=== PATIENT | male | born 1985 | race Caucasian/White ===

== ENCOUNTER 2024-08-02 11:33 | Emergency (ER) | payer OTHER, SELFPAY ==
--- NOTE | ~2024-08-02 | CT_ITS ---
EXAMINATION: CT abdomen pelvis w con DATE: 08/02/2024 12:46 INDICATION: Left lower quadrant abdominal pain. Diarrhea. TECHNIQUE: Computed tomography (CT) of the abdomen and pelvis was performed with 100 mL Omnipaque 350 intravenous contrast. Automated exposure control and iterative reconstruction technique were employe d. The dose-length product was 219.70 mGy-cm. COMPARISON: None. FINDINGS: The visualized portions of the lung bases are clear without pneumonia or pleural effusion. The heart size is normal. No pericardial effusion. The liver is normal. There are changes of cholecys tectomy. The spleen, pancreas, adrenal glands, and kidneys are normal. There are no dilated loops of bowel. There is fat stranding around an epiploic appendage of sigmoid colon, consistent with epiploic appendagitis. The appendix is normal. There are no pathologically enlarged lymph nodes. There is no free intraperitoneal fluid. There is mild lumbar spondylosis. IMPRESSION: 1. Epiploic appendagitis of sigmoid colon. Reviewed, dictated and finalized at location A.
[2024-08-02 11:36] VITALS: BP 124/75; PULSE 68; RESP 15; TEMP 36.6; O2SAT 100
[2024-08-02 12:15] LABS: Basophils Absolute Auto 0.1 K/mm3 (0.0-0.1); Basophils Percent Auto 0.8 % (0.2-1.2); Eosinophils Absolute Auto 0.4 K/mm3 (0-0.3); Eosinophils Percent Auto 4.3 % (0-4.4); Hematocrit 40.6 % (42.0-52.0); Immature Granulocyte Absolute 0.03 K/mm3 (0.00-0.031); Immature Granulocyte Percent A 0.3 % (0-0.5); Lymphocytes Absolute Auto 2.07 K/mm3 (0.9-3.2); Lymphocytes Percent Auto 23.9 % (18.3-44.2); Mean Corpuscular HGB Conc 34.5 g/dl (32-36); Mean Corpuscular Hemoglobin 31.6 pg (26-34); Mean Corpuscular Volume 91.6 fl (80-100); Mean Platelet Volume 9.9 fl (7.4-10.4); Monocytes Absolute Auto 0.5 K/mm3 (0.1-0.6); Monocytes Percent Auto 5.3 % (2.6-8.5); Neutrophils Absolute Auto 5.7 K/mm3 (1.3-6.7); Neutrophils Percent Auto 65.4 % (45.5-73.1); Platelet Count Result 321 k/mm3 (150-375); Red Blood Count 4.43 M/mm3 (4.6-6.20); Red Cell Distribution Width 11.9 % (11.5-14.5); White Blood Count 8.7 K/mm3 (4.5-10.0)
[2024-08-02 12:18] LABS: Add Urine Microscopic? NO; Appearance Urine Clear (Clear); Bilirubin Urine Negative (Negative); Blood Urine Negative (Negative); Color Urine Yellow (Yellow); Glucose Urine UA Negative (Negative); Ketones Urine Negative (Negative); Leukocyte Esterase Ur Negative LEU/UL (Negative); Nitrate Urine Negative (Negative); Protein Urine Negative (Negative); Urobilinogen Urine 0.2 mg/dL (<2.0); pH Urine 6.5 (5.0-9.0)
[2024-08-02 12:25] LABS: Alanine Aminotransferase 24 U/L (6-50); Albumin Level 4.9 g/dL (3.5-5.1); Alkaline Phosphatase 88 U/L (38-126); Anion Gap 11 mmol/L (4-12); Aspartate Amino Transferase 29 U/L (17-59); Bilirubin,Total 2.1 mg/dL (0.2-1.3); Blood Urea Nitrogen 15 mg/dL (9-20); Calcium 9.8 mg/dL (8.4-10.2); Carbon Dioxide 29 mmol/L (22-30); Chloride 100 mmol/L (98-107); Estimated CRCL calculation 88 ml/min; Estimated Glomerular Filt Rate > 60; Glucose 97 mg/dL (65-110); Lipase 87 U/L (23-300); Potassium 4.2 mmol/L (3.4-5.0); Sodium 140 mmol/L (137-145)
--- NOTE | 2024-08-02 12:35 | ED_ITS ---
HPI - Abdominal Pain General Chief Complaint: Abdominal Pain Stated Complaint: abd pain Time Seen by Provider: 08/02/24 11:47 Source: patient Mode of arrival: ambulatory Limitations: no limitations History of Present Illness HPI narrative: Patient is a 39-year-old male who presents the ED with report of left lower abdominal pain. Patient reports he developed pain yesterday in his left lower abdomen. [place] like gas pains. He did have 2 bowel movements yesterday, both of which were soft and diarrhea like. Denies rectal bleeding or melena. States pain has since persisted. He reports some nausea, denies vomiting. Denies known fevers. Denies urinary complaints. Denies testicular swelling. No history of similar pain. No previous history of diverticulitis. Review of Systems 2 Review of Systems: All systems reviewed & are unremarkable except as noted in HPI. All systems reviewed & are unremarkable except as noted in HPI and below Exam 2 Narrative: GENERAL: Well appearing, well-nourished, non-toxic, in no acute distress. HEAD: Normocephalic, atraumatic. RESPIRATORY: Airway patent, respirations nonlabored. Clear to auscultation bilaterally, no rales, rhonchi, wheezing. CARDIOVASCULAR: Regular rate and rhythm ABDOMINAL: Soft, mild tenderness palpation left lower/lateral abdomen, nondistended. Normoactive BS. MUSCULOSKELETAL: Moves all extremities. No gross deformities. SKIN: Warm, dry, normal color. NEURO: A&O X3. Speech clear. PSYCHIATRIC: Appropriate mood and affect. Normal interaction. Course Vital Signs Vital signs: Vital Signs Temperature 97.8 F 08/02/24 11:36 Pulse Rate 68 08/02/24 11:36 Respiratory Rate 15 08/02/24 11:36 Blood Pressure 124/75 08/02/24 11:36 Pulse Oximetry 100 08/02/24 11:36 Oxygen Delivery Room Air 08/02/24 11:36 Temperature 97.8 F 08/02/24 11:36 Pulse Rate 68 08/02/24 11:36 Respiratory Rate 15 08/02/24 11:36 Blood Pressure 124/75 08/02/24 11:36 Pulse Oximetry 100 08/02/24 11:36 Oxygen Delivery Room Air 08/02/24 11:36 MDM - Abdominal Pain MDM Narrative Medical decision making narrative: Patient presented to ED with left lower abdominal pain, onset yesterday, associated diarrhea. No history of previous similar pain. Vital signs are stable upon arrival. Patient is in no acute distress upon my evaluation. Laboratory studies are unremarkable. No leukocytosis or anemia. Stable electrolytes. Total bili elevated to 2.1. Otherwise normal LFTs and lipase. Hx of previous cholecystectomy. UA is clear. CT scan of abdomen/pelvis was obtained and showing epiploic appendagitis of sigmoid colon. Discussed lab and imaging findings with patient. Discussed management of epiploic appendagitis, recommended patient continue NSAIDs at home. Otherwise safe for discharge home. Given strict return precautions. Patient in agreement with plan. Discharged in stable condition. Medical Records Attestation: I reviewed the patient's medical records. Lab Data Attestation: I reviewed the patient's lab results. 08/02/24 12:06 08/02/24 12:06 Labs: Lab Results 08/02/24 Range/Units 12:06 WBC 8.7 (4.5-10.0) K/mm3 RBC 4.43 L (4.6-6.20) M/mm3 Hgb 14.0 (14.0-18.0) g/dL Hct 40.6 L (42.0-52.0) % MCV 91.6 (80-100) fl MCH 31.6 (26-34) pg MCHC 34.5 (32-36) g/dl RDW 11.9 (11.5-14.5) % Plt Count 321 (150-375) k/mm3 MPV 9.9 (7.4-10.4) fl Immature Gran % (Auto) 0.3 (0-0.5) % Neut % (Auto) 65.4 (45.5-73.1) % Lymph % (Auto) 23.9 (18.3-44.2) % [place] % (Auto) 5.3 (2.6-8.5) % Eos % (Auto) 4.3 (0-4.4) % Baso % (Auto) 0.8 (0.2-1.2) % Lymph # (Auto) 2.07 (0.9-3.2) K/mm3 [place] # (Auto) 0.5 (0.1-0.6) K/mm3 Eos # (Auto) 0.4 H (0-0.3) K/mm3 Baso # (Auto) 0.1 (0.0-0.1) K/mm3 Abs Immat Gran (auto) 0.03 (0.00-0.031) K/mm3 Absolute Neuts (auto) 5.7 (1.3-6.7) K/mm3 Absolute Nucleated RBC 0.000 (0.0-0.012) K/mm3 Nucleated RBC % 0.0 (0.0-0.2) % Sodium 140 (137-145) mmol/L Potassium 4.2 (3.4-5.0) mmol/L Chloride 100 (98-107) mmol/L Carbon Dioxide 29 (22-30) mmol/L Anion Gap 11 (4-12) mmol/L BUN 15 (9-20) mg/dL Creatinine 0.99 (0.7-1.3) mg/dL Estim Creat Clear Calc 88 ml/min Estimated GFR > 60 (59 - ) Glucose 97 (65-110) mg/dL Calcium 9.8 (8.4-10.2) mg/dL Total Bilirubin 2.1 H (0.2-1.3) mg/dL AST 29 (17-59) U/L ALT 24 (6-50) U/L Alkaline Phosphatase 88 (38-126) U/L Total Protein 8.0 (6.3-8.2) g/dL Albumin 4.9 (3.5-5.1) g/dL Lipase 87 (23-300) U/L Urine Color Yellow (Yellow) Urine Appearance Clear (Clear) Urine pH 6.5 (5.0-9.0) Ur Specific [place] 1.010 (1.001-1.035) Urine Protein Negative (Negative) mg/dL Urine Glucose (UA) Negative (Negative) mg/dL Urine Ketones Negative (Negative) mg/dL Ur Blood (Man) Negative (Negative) Urine Nitrate Negative (Negative) Urine Bilirubin Negative (Negative) Urine Urobilinogen 0.2 (<2.0) mg/dL Leukocyte Esterase Rfl Negative (Negative) MAYRA/UL Imaging Data Attestation: I personally reviewed and interpreted this imaging study as follows: Radiologist's impression: ITS Impressions Abdomen/Pelvis CT 08/02/24 12:53 IMPRESSION: 1. Epiploic appendagitis of sigmoid colon. Discharge Plan Discharge Clinical Impression: Epiploic appendagitis Patient Disposition: Home, Self-Care Condition: Stable Instructions: Antibiotic Form, Epiploic Appendagitis (ED) Additional Instructions: Your CT imaging showed evidence of epiploic appendagitis. Your symptoms should resolve on its own. Recommend taking Ibuprofen and Tylenol as needed for pain. Utilize Zofran as needed for nausea. Follow-up with your primary care doctor for further evaluation if needed. Return to the ED if you experience worsening or severe pain, rectal bleeding, dark black stools, unable to keep down food or drink, persistent fevers, or any other symptoms of concern. Patient Language: Urdu Prescriptions: New ondansetron 4 mg tablet,disintegrating 4 mg PO Q8H PRN (Reason: nausea and vomiting) Qty: 15 0RF Follow-up/Referrals: UNKNOWN,DOCTOR [Primary Care Provider] - Stand Alone Forms: Work/School Release IP Time of Disposition: 13:09
[2024-08-02] MEDS: ONDANSETRON INJ 4 MG/2 ML VIAL IV PUSH (12:48)
--- OUTSIDE RECORDS SUMMARY | 2024-08-02 12:56 | XMS_ITS | Clinical Summary ---
Author Organization [email or web address] Address [address] [place] [address] Care Team Providers Care Flanger Name Role Phone Rodrigo Zheng MD Primary Care Provider [phone] Source Comments [email or web address],non-owned Affiliates and Associated Physician Practices is amultiple site organization consisting of ambulatory clinics and hospital sitesin [place], [place], [place] and [place]. This disclosure is being madepursuant to the Care Everywhere program and may not contain all information available regarding this patient. Last updated 18.[email or web address] Allergies No known active allergies Medications * Be aware that medications may not be up to date on this document. Alwaysverify current medications with the patient. Medication Sig Dispensed Refills Start Date End Date Status Citalopram Hydrobromide (CELEXA PO) Active Social History Tobacco Use Types Packs/Day Years Used Date Smoking Tobacco: Every Day AUDIT-C Answer Date Recorded Q1: How often do you have a drink containing alcohol? Never 05/11/2022 Q2: How many drinks containi ng alcohol do you have on a typical day when you are drinking? Patient does not drink Q3: How often do you have si x or more drinks on one occasion? Never 05/11/2022 Sex and Gender Information Value Date Recorded Sex Assigned at Not on file Gender Identity Not on file Sexual Orientation Not on file Last Filed Vital Signs Vital Sign Reading Time Taken Comments Blood Pressure 106/70 05/11/2022 2:31 PM APPEALS REFEREE Pulse 65 05/11/2022 2:02 PM APPEALS REFEREE Temperature 36.4 C (97.6 F) 05/11/2022 10:53 AM APPEALS REFEREE Respiratory Rate 14 05/11/2022 2:02 PM APPEALS REFEREE Oxygen Saturation 98% 05/11/2022 2:02 PM APPEALS REFEREE Inhaled Oxygen Concentration - - Weight 68 kg (150 lb) 05/11/2022 10:53 AM APPEALS REFEREE Height 175.3 cm (5' 9 ) 05/11/2022 10:53 AM APPEALS REFEREE Body Mass Index 22.15 05/11/2022 10:53 AM APPEALS REFEREE Plan of Treatment Health Maintenance Due Date Last Done Comments HEPATITIS C SCREENING 05/27/2003 DTAP/TDAP/TD VACCINES (1 - Tdap) 2004 HEPATITIS B VACCINE (1 of 3 - 19+ 3-dose series) 2004 PNEUMOCOCCAL VACCINE (1 of 2 - PCV) 2004 COVID-19 VACCINE ( - 2023-2 5 season) 2024 INFLUENZA VACCINE (#1) 2024 DEPRESSION SCREENING 05/09/2024 ZOSTER VACCINE (1 of 2) 2035 HIV SCREENING Completed 05/11/2022 HIB VACCINE Aged Out No longer eligi ble based on patient's age to complete this topic HPV VACCINE Aged Out No longer eligi ble based on patient's age to complete this topic MENINGOCOCCAL (Group B) VACC INE SHARED DECISION-MAKING Aged Out No longer eligibl e based on patient's age to complete this topic MENINGOCOCCAL GROUPS A/C/Y/W VACCINE Aged Out No longer eligible b ased on patient's age to complete this topic Procedures Procedure Name Priority Date/Time Associated Diagnosis Comments HIV-1 HIV-2 ANTIBODY + HIV P24 AG PANEL STAT 05/11/2022 11:02 AM APPEALS REFEREE from Last 3 Months or Most Recently Relevant to Health Maintenance Results * HIV-1 HIV-2 ANTIBODY + HIV P24 AG PANEL (05/11/2022 11:02 AM APPEALS REFEREE) HIV Antigen/Antibod y 1 & 2 Non-reacti ve Non-react saji 05/11/2022 12:06 PM APPEALS REFEREE [facility] Comment:No Laboratory eviden ce of HIV infection. Blood BLOOD SPECIMEN / Unknown Venipuncture / Unknown 05/11/2022 11:02 AM APPEALS REFEREE 05/11/2022 11:33 AM APPEALS REFEREE Jorge Escalona MD LAB - CHEMISTR Y ORDERABLES [facility] [address] [place] [address], [facility] [phone] from Last 3 Months or Most Recently Relevant to Health Maintenance Care Teams Flanger Relationship Specialty Start Date End Date Rodrigo Zheng MD PCP - General Family Medicine 03/29/16
--- OUTSIDE RECORDS SUMMARY | 2024-08-02 12:56 | XMS_ITS | Clinical Summary ---
Author Organization [facility] Address [address] [place] [address] Phone Care Team Providers Care Energy Efficiency Specialist Name Role Phone Rodrigo Zheng MD Primary Care Provider [phone] Allergies No known active allergies Medications NIFEdipine (PROCARDIA-XL) 30 MG TABLET SR 24 HR Take 1 Tablet by mouth daily. 30 Tablet 3 05/17/2022 Active naproxen (NAPROSYN) 500 MG TabletIndication s:Acute thoracic back pain, unspecified back pain laterality Take 1 Tablet by mouth 2 times daily (with meals). 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 17 History of testicular cancer 09/22/2016 Cancer Staging:Clinical: pT2, N1, M0 - Signed by Osiel Fall MD on 11/29/2016 Depression 12/17/2015 Family history of prostate cancer 12/17/2015 Family history of stroke 12/17/2015 Chronic pain syndrome 12/17/2015 Vitamin D deficiency Resolved Problems Problem Noted Date Diagnosed Date Resolved Date Anemia associated with chemotherapy 02/01/2017 06/10/2017 Acute headache 01/17/2017 02/11/2017 Chemotherapy-induced neutropenia 01/04/2017 02/11/2017 Oral mucositis due to antineoplastic therapy 7 02/11/2017 Oral thrush 12/10/2016 01/04/2017 Chemotherapy-induced nausea and vomiting 12/06/2016 02/11/2017 Slow transit constipation 12/06/2016 Tobacco abuse 12/17/2015 12/06/2016 Family History Medical History Relation Name Comments Cancer Father skin Prostate Cancer Father Depression Maternal Grandmother Depression Mother Cancer Paternal Aunt Relation Name Status Comments Brother Alive Daughter Karen (10) Alive Father Alive Maternal Grandmother Mother Alive Paternal Aunt Social History Tobacco Use Types Packs/Day Years Used Date Smoking Tobacco: Former Cigarettes 1 18 Smokeless Tobacco: Former Quit: 02/01/2022 Tobacco Cessation:Counseling Given: Not Answered Alcohol Use Standard Drinks/Week Comments Yes 5 (1 standard drink = 0.6 oz pur e alcohol) 2-3 beers per night PHQ-2 Answer Date Recorded Total Score - Questions 1-9 0 01/2023 Sexually Active Control Partners Comments Yes Female Sex and Gender Information Value Date Recorded Sex Assigned at Not on file Legal Sex Male 9:41 PM CDT Gender Identity Not on file Sexual Orientation Not on file Last Filed Vital Signs Vital Sign Reading Time Taken Comments Blood Pressure 134/74 05/17/2022 10:59 AM [facility] Pulse 78 05/17/2022 10:59 AM [facility] Temperature 36.5 C (97.7 F) 05/17/2022 10:59 AM [facility] Respiratory Rate 14 05/17/2022 10:59 AM [facility] Oxygen Saturation 97% 05/17/2022 10:59 AM [facility] Inhaled Oxygen Concentration - - Weight 68.3 kg (150 lb 9.6 oz) 05/17/2022 10:59 AM [facility] Height 175.3 cm (5' 9 ) 05/17/2022 10:59 AM [facility] Body Mass Index 22.24 05/17/2022 10:59 AM [facility] Plan of Treatment Health Maintenance Due Date Last Done Comments Hepatitis C Virus (HCV) Screening 1985 TdaP Immunization 1985 Hepatitis B Immunization (1 of 3 - 19+ 3-dose series) 2004 Influenza Immunization (#1) 2024 SARS-COV-2 Immunization ( season) 2024 Respiratory Syncytial Virus (RSV) Immunization (Adult) (1 - 1-dose 75+ series) 2060 Meningococcal Immunization (ACWY) Aged Out No longer eligible based on patient's age to complete this topic Pneumococcal Immunization Combined Aged Out No longer eligible based on patient's age to complete this topic Rotavirus Immunization Aged Out No lo nger eligible based on patient's age to complete this topic Goals Goal Patient Goal Type Associated Problems Recent Progress Patient-Stated? Author Behavioral Health Behavioral Health Yes Hung Meredith PSYD Note: Patient wishes to receive a psychological assessment for his attention, concentration, motivation, and time management issues, with the suspicion that he may have ADHD. Medical Devices Implanted Type Area [employer] Director Device Identifier Shelf Expiration Date Model / Serial / Lot [employer] Implanted W/Sut Plugs 8fr - [id number] Implanted:Qty : 1 on 12/23/2016 by Art Malhotra MD at [facility] IMPLANT Right: Chest Wall CR BARD / BARD BIOPSY 02/05/2018 [id number] / [id number] / [id number] Insurance [facility] Care Teams Energy Efficiency Specialist Relationship Specialty Start Date End Date Rodrigo Zheng MD [address] [place] [id number] PCP - General Family Medicine 06/08/22
[2024-08-02] MEDS: KETOROLAC 30 MG/ML VIAL (*BKC) IV PUSH (13:26)
== END 2024-08-02 13:40 | disposition home or self-care (01) ==
PROVIDERS: Emergency Provider Physician Assistant
DX: K63.89 Other specified diseases of intestine (principal)
CPT/HCPCS: 36415; 74177; 80053; 81003; 83690; 85025; 96374; 96375; 99284; J1885; J2405; Q9967